=== PATIENT | male | born 1950 | race Caucasian/White ===

== ENCOUNTER 2020-10-14 16:24 | Observation (INO) ==
[2020-10-14] MEDS ORDERED: Naloxone 0.4 MG/ML INJ IVP PRN (18:02)
[2020-10-14] MEDS ORDERED: Ondansetron 4 MG/2 ML VIAL IVP PRN (18:02)
[2020-10-14] MEDS ORDERED: Acetaminophen 325 MG TABLET PO PRN (18:02)
[2020-10-14] MEDS: 0.9 % Sodium Chloride 1,000 ML IVC SCH (18:31)
[2020-10-14] MEDS ORDERED: D5% in Water 1,000 ML IVC PRN (18:50)
[2020-10-14] MEDS ORDERED: *HR* Dextrose 50 % in Water (Vial) 50 ML VIAL IVP PRN (18:50)
[2020-10-14] MEDS ORDERED: Dextrose Gel 15 GM/37.5 ML TUBE PO PRN ×2 (18:50)
[2020-10-14 20:14] LABS: Estimated Average Glucose 146 mg/dl; Hemoglobin A1C 6.7 %
[2020-10-14 21:02] LABS: BUN/Creatinine Ratio 49 (6-26); Blood Urea Nitrogen 57 mg/dL (8-23); Calcium 9.2 mg/dL (8.6-10.3); Carbon Dioxide 10 mEq/L (23-29); Chloride 108 mEq/L (98-107); Glucose 120 mg/dL (70-105); Magnesium 1.9 mg/dL (1.6-2.6); Osmolality,Calculated 293 (280-300); Potassium 4.7 mEq/L (3.5-5.1); Sodium 133 mEq/L (136-145); eGFR For African Americans > 60 (> 60); eGFR For Non-African Americans > 60 (> 60)
[2020-10-14] MEDS: Insulin LISPRO 300 UNITS/3 ML VIAL SUBQ SCH (21:59)
[2020-10-14 22:07] LABS: ABG Base Excess -9 mEq/L (-2 to 3); ABG HCO3 16 mEq/L (21-27); ABG Oxygen Saturation 96 % (95-98); ABG PCO2 34 mmHg (35-45); ABG PH 7.28 pH Units (7.32-7.45); ABG PO2 93 mmHg (85-104); ABG TCO2 17 mEq/L (20-26)
[2020-10-15 01:44] LABS: Hematocrit 49.5 % (37.5-50.1); Hemoglobin 16.5 g/dL (12.9-16.9); Mean Corpuscular HGB Conc 33.3 g/dL (31.6-35.5); Mean Corpuscular Hemoglobin 30.2 pg (28.0-33.3); Mean Corpuscular Volume 90.7 fL (83.0-100.0); Mean Platelet Volume 11.2 fL (9.4-12.4); Platelet Count 167 K/mcL (140-400); Red Blood Count 5.46 M/mcL (4.19-5.50); Red Cell Distribution Width 13.3 % (11.5-14.5); White Blood Count 7.4 K/mcL (4.3-11.1)
[2020-10-15 02:11] LABS: BUN/Creatinine Ratio 53 (6-26); Blood Urea Nitrogen 55 mg/dL (8-23); Calcium 8.4 mg/dL (8.6-10.3); Carbon Dioxide 15 mEq/L (23-29); Chloride 108 mEq/L (98-107); Glucose 129 mg/dL (70-105); Magnesium 1.6 mg/dL (1.6-2.6); Osmolality,Calculated 295 (280-300); Potassium 3.7 mEq/L (3.5-5.1); Sodium 134 mEq/L (136-145); eGFR For African Americans > 60 (> 60); eGFR For Non-African Americans > 60 (> 60)
[2020-10-15] MEDS: *HR* Enoxaparin 40 MG/0.4 ML SYRINGE SQ SCH (06:17)
[2020-10-15] MEDS: 0.9 % Sodium Chloride 1,000 ML IVC SCH (06:34)
[2020-10-15] MEDS: Insulin LISPRO 300 UNITS/3 ML VIAL SUBQ SCH ×4 (08:21→21:19)
[2020-10-15] MEDS ORDERED: Preparation H Ointment 57 GM TUBE TP PRN (13:59)
[2020-10-16] MEDS: *HR* Enoxaparin 40 MG/0.4 ML SYRINGE SQ SCH (05:33)
[2020-10-16] MEDS: Insulin LISPRO 300 UNITS/3 ML VIAL SUBQ SCH (07:57)
[2020-10-16 08:19] LABS: Hematocrit 45.7 % (37.5-50.1); Hemoglobin 15.1 g/dL (12.9-16.9); Mean Corpuscular Hemoglobin 30.1 pg (28.0-33.3); Mean Corpuscular Volume 91.2 fL (83.0-100.0); Mean Platelet Volume 11.3 fL (9.4-12.4); Platelet Count 135 K/mcL (140-400); Red Blood Count 5.01 M/mcL (4.19-5.50); Red Cell Distribution Width 13.2 % (11.5-14.5); White Blood Count 7.4 K/mcL (4.3-11.1)
[2020-10-16 08:35] LABS: BUN/Creatinine Ratio 37 (6-26); Blood Urea Nitrogen 25 mg/dL (8-23); Calcium 8.5 mg/dL (8.6-10.3); Carbon Dioxide 19 mEq/L (23-29); Chloride 113 mEq/L (98-107); Glucose 99 mg/dL (70-105); Osmolality,Calculated 288 (280-300); Potassium 3.9 mEq/L (3.5-5.1); Sodium 137 mEq/L (136-145); eGFR For African Americans > 60 (> 60); eGFR For Non-African Americans > 60 (> 60)
[2020-10-16] MEDS ORDERED: Aspirin Enteric Coated 81 MG Tablet PO SCH (09:00)
[2020-10-16] MEDS ORDERED: atenoloL 50 MG TABLET PO SCH (09:00)
[2020-10-16 11:12] VITALS: BP 121/76; PULSE 70; TEMP 98.2; O2SAT 98
== END 2020-10-16 11:30 | disposition home or self-care (01) ==
LOC: 3BNU → SUATTDRO 17:51
PROVIDERS: ADMIT Internal Medicine; ATTEND Nurse Practitioner